=== PATIENT | male | born 1930 | race Caucasian/White ===

== ENCOUNTER 2019-01-17 10:15 | Inpatient (IN) | payer MEDICARE ==
[~2019-01-17] VITALS: Ht 195.6 cm; Wt 117.1 kg
[~2019-01-17 10:15] MED LIST: AMIO200T61 PO; FURO-150 PO; METO-395 PO; OMEP-297 PO; SIMV20TA PO; WARF6TAB49 PO
[2019-01-17 11:13] LABS: BASOPHILS % (AUTO) 0.8 % (0-1); EOSINOPHILS # (AUTO) 0.1 X10'3 (0-0.9); EOSINOPHILS % (AUTO) 1.2 % (0-6); HEMATOCRIT 43.5 % (42.0-52.0); HEMOGLOBIN 14.1 g/dl (14.0-17.9); LYMPHOCYTES # (AUTO) 1.4 X10'3 (1.1-4.8); LYMPHOCYTES % (AUTO) 22.4 % (21-51); MEAN CORPUSCULAR HEMOGLOBIN 24.7 PG (27.0-31.0); MEAN CORPUSCULAR HGB CONC 32.3 g/dL (33.0-36.5); MEAN CORPUSCULAR VOLUME 76.6 FL (78-98); MEAN PLATELET VOLUME 7.9 FL (7.4-10.4); MONOCYTES # (AUTO) 0.4 X10'3 (0-0.9); MONOCYTES % (AUTO) 5.9 % (2-12); NEUTROPHILS # (AUTO) 4.2 X10'3 (1.8-7.7); NEUTROPHILS % (AUTO) 69.7 % (42-75); PLATELET COUNT 205 X10'3 (140-440); RED BLOOD COUNT 5.68 X10'6 (4.70-6.10); RED CELL DISTRIBUTION WIDTH 15.3 % (11.5-14.5)
[2019-01-17 11:29] LABS: ALANINE AMINOTRANSFERASE 8 U/L (12-78); ALBUMIN 2.6 G/DL (3.4-5.0); ALBUMIN/GLOBULIN RATIO 0.6 (1.1-1.5); ALKALINE PHOSPHATASE 91 IU/L (46-116); ANION GAP 8 (8-16); BILIRUBIN,TOTAL 0.6 MG/DL (0.1-1.0); BLOOD UREA NITROGEN 12 MG/DL (7-18); BUN/CREATININE RATIO 9.7 (5.4-32.0); CALCIUM 8.8 MG/DL (8.5-10.1); CHLORIDE 105 MMOL/L (99-107); CREATININE 1.24 MG/DL (0.60-1.10); GLUCOSE 90 MG/DL (70-104); MAGNESIUM 2.2 MG/DL (1.5-2.4); SODIUM 140 MMOL/L (135-145); TOTAL CARBON DIOXIDE 26.7 MMOL/L (24-32); TOTAL PROTEIN 6.8 G/DL (6.4-8.2); eGFR 55 ML/MIN
[2019-01-17 11:34] LABS: ASPARTATE AMINO TRANSFERASE 31 U/L (10-37); POTASSIUM 4.1 MMOL/L (3.5-5.1)
--- NOTE | 2019-01-17 11:39 | NUR ---
wound pictures taken, dressing to abd changed
[2019-01-17] MEDS ORDERED: magnesium 4gm in 100ml NS 100 ML IV PRN (11:40)
[2019-01-17] MEDS ORDERED: magnesium hydroxide 30ml (MOM) UD suspension PO PRN (11:40)
[2019-01-17] MEDS ORDERED: morphine 2 MG/ML inj. syringe IV PRN (11:40)
[2019-01-17] MEDS ORDERED: potassium CL 10mEq/100ml bag 100 ML IV PRN ×2 (11:40)
[2019-01-17] MEDS ORDERED: mag hydrox/Alum hydrox/simeth 30ml oral suspension PO PRN (11:40)
[2019-01-17] MEDS ORDERED: magnesium Cl slow-release 64mg tablet PO PRN (11:40)
[2019-01-17] MEDS ORDERED: potassium Cl 20 mEq SR tablet PO PRN ×2 (11:40)
[2019-01-17] MEDS ORDERED: acetaminophen 325mg tablet PO PRN (11:40)
[2019-01-17] MEDS ORDERED: magnesium 2GM in 50ml NS 50 ML IV PRN (11:40)
[2019-01-17 12:55] VITALS: BP 135/62
[2019-01-17] MEDS: normal saline 1000ml 1,000 ML IV SCH ×2 (13:44→23:30)
--- NOTE | 2019-01-17 13:52 | NUR ---
Wound care nurse at bedside
--- NOTE | 2019-01-17 14:46 | NUR ---
Family brought patient's belonging home
--- NOTE | 2019-01-17 14:55 | NUR ---
polysomnograph tech at bedside
[2019-01-17] MEDS ORDERED: FLU VACC QS2019-20 36MOS UP/PF 60 MCG/0.5 ML SYRINGE IMVAC ONE (16:20)
--- NOTE | 2019-01-17 17:13 | NUR ---
Per patient, he already got a flu shot last month
--- NOTE | 2019-01-17 18:50 | NUR ---
Patient in room [facility]. I have received report from PAMELA DONAHUE and had the opportunity to ask questions and assume patient care. Addendum: 01/17/19 at 2010 by Coleman Hanna RN Amended: Links added.
--- NOTE | 2019-01-17 18:51 | NUR ---
Problems reprioritized. Patient report given, questions answered & plan of care reviewed with Renita SANTIAGO.
[2019-01-17 19:00] VITALS: BP 150/59
[2019-01-17] MEDS ORDERED: ASPI81TA52 PO (20:01)
[2019-01-17] MEDS ORDERED: CHOL200016 PO (20:04)
--- NOTE | 2019-01-17 20:08 | NUR ---
DISCUSSED HOME MEDICATIONS WITH FAMILY, ONEYDAOP AND ABLuigi. DAUGHTER STATES HE GETS HICCOUGHS AFTER SURGERY, AND HAS BECOME ANGRY AND SOMEWHAT VIOLENT AFTER SURGERY, HAS PULLED IV APART, NO HX OF HITTING. Addendum: 01/17/19 at 2009 by Coleman Hanna RN Amended: Links added.
[2019-01-17] MEDS ORDERED: FURO40TA4 PO (20:23)
[2019-01-17] MEDS ORDERED: AMIO100T4 PO (20:25)
[2019-01-17] MEDS: clindamycin 600mg/D5W 50ml 50 ML IV SCH (21:15)
[2019-01-18] VITALS: BP 142/59
--- NOTE | 2019-01-18 00:52 | NUR ---
UNABLE TO CLIP HAIR ON ABD D/T FISTULA WITH LARGE OSTOMY BAG IN PLACE, AMB VERY EXCORIATED WITH OPEN AREAS, NO HAIR NOTED ON ABD. Addendum: 01/18/19 at 0056 by Coleman Hanna RN Amended: Links added.
[2019-01-18 06:08] LABS: BASOPHILS % (AUTO) 0.6 % (0-1); EOSINOPHILS # (AUTO) 0.1 X10'3 (0-0.9); EOSINOPHILS % (AUTO) 1.9 % (0-6); HEMATOCRIT 39.5 % (42.0-52.0); HEMOGLOBIN 12.8 g/dl (14.0-17.9); LYMPHOCYTES # (AUTO) 2.1 X10'3 (1.1-4.8); LYMPHOCYTES % (AUTO) 41.9 % (21-51); MEAN CORPUSCULAR HEMOGLOBIN 24.8 PG (27.0-31.0); MEAN CORPUSCULAR HGB CONC 32.3 g/dL (33.0-36.5); MEAN CORPUSCULAR VOLUME 76.8 FL (78-98); MEAN PLATELET VOLUME 7.9 FL (7.4-10.4); MONOCYTES # (AUTO) 0.4 X10'3 (0-0.9); MONOCYTES % (AUTO) 7.7 % (2-12); NEUTROPHILS # (AUTO) 2.4 X10'3 (1.8-7.7); NEUTROPHILS % (AUTO) 47.9 % (42-75); PLATELET COUNT 201 X10'3 (140-440); RED BLOOD COUNT 5.14 X10'6 (4.70-6.10); RED CELL DISTRIBUTION WIDTH 15.3 % (11.5-14.5)
[2019-01-18 06:23] LABS: PARTIAL THROMBOPLASTIN TIME 30 SECONDS (22-32)
[2019-01-18 06:26] LABS: ALBUMIN 2.2 G/DL (3.4-5.0); ANION GAP 8 (8-16); BLOOD UREA NITROGEN 11 MG/DL (7-18); BUN/CREATININE RATIO 9.6 (5.4-32.0); CALCIUM 8.3 MG/DL (8.5-10.1); CHLORIDE 109 MMOL/L (99-107); CREATININE 1.14 MG/DL (0.60-1.10); GLUCOSE 76 MG/DL (70-104); MAGNESIUM 2.1 MG/DL (1.5-2.4); SODIUM 140 MMOL/L (135-145); TOTAL CARBON DIOXIDE 22.6 MMOL/L (24-32); eGFR 60 ML/MIN
--- NOTE | 2019-01-18 06:26 | NUR ---
Problems reprioritized. Patient report given, questions answered & plan of care reviewed with PAMELA HU. Addendum: 01/18/19 at 0626 by Coleman Hanna RN Amended: Links added.
--- NOTE | 2019-01-18 06:38 | NUR ---
Patient in room [facility] 355. I have received report from PAMELA Downs and had the opportunity to ask questions and assume patient care.
[2019-01-18] MEDS: K and/or MAG REPLACEMENT MC SCH (07:04)
[2019-01-18] MEDS: clindamycin 600mg/D5W 50ml 50 ML IV SCH ×3 (07:50→21:30)
[2019-01-18 08:00] VITALS: BP 143/60
[2019-01-18] MEDS: normal saline 1000ml 1,000 ML IV SCH ×3 (09:30→19:24)
[2019-01-18] MEDS ORDERED: OMEP-297 PO (10:33)
[2019-01-18] MEDS ORDERED: CHOL100046 PO (10:33)
[2019-01-18] MEDS ORDERED: METO25TA6 PO (10:33)
[2019-01-18] MEDS ORDERED: PRAV40TA3 PO (10:33)
--- NOTE | 2019-01-18 16:57 | NUR ---
Pt complains of urgency and difficulty with urination. Total urine output of 275 mL over 11 hours with IVF of NS infusing at 100 mL per hour and additional PO intake. Post-void bladder scan indicated residual volume of 141 mL. notified. Will continue to monitor.
--- NOTE | 2019-01-18 18:12 | NUR ---
Student documentation: I have reviewed and agree with all interventions, assessments performed and documented by Dawn Acevedo.
--- NOTE | 2019-01-18 18:42 | NUR ---
Problems reprioritized. Patient report given, questions answered & plan of care reviewed with PAMELA Hewitt.
--- NOTE | 2019-01-18 18:57 | NUR ---
Patient in room [facility] 355. I have received report from PAMELA Miner and had the opportunity to ask questions and assume patient care.
[2019-01-18 20:00] VITALS: BP 138/60
[2019-01-18] MEDS ORDERED: metoprolol tartrate 25mg tablet PO SCH (20:00)
[2019-01-18] MEDS: atorvastatin 10mg tablet PO SCH (21:29)
--- NOTE | 2019-01-18 23:30 | NUR ---
Tele reports HR mid 40's. notified. Per previous RN, patient no longer takes lopressor. MD ordered lopressor DC'd. Will continue to monitor.
[2019-01-19] VITALS (13 sets, daily range): BP systolic 119–163; BP diastolic 49–72
[2019-01-19] MEDS: HYDROcodone/acetaminophen 5mg/325mg tablet PO PRN (00:49)
[2019-01-19] MEDS: normal saline 1000ml 1,000 ML IV SCH ×2 (05:08→19:28)
[2019-01-19 05:21] LABS: BASOPHILS # (AUTO) 0.1 X10'3 (0-0.2); BASOPHILS % (AUTO) 1.3 % (0-1); EOSINOPHILS # (AUTO) 0.2 X10'3 (0-0.9); EOSINOPHILS % (AUTO) 2.5 % (0-6); HEMATOCRIT 39.7 % (42.0-52.0); HEMOGLOBIN 12.8 g/dl (14.0-17.9); LYMPHOCYTES # (AUTO) 2.4 X10'3 (1.1-4.8); LYMPHOCYTES % (AUTO) 36.6 % (21-51); MEAN CORPUSCULAR HGB CONC 32.3 g/dL (33.0-36.5); MEAN CORPUSCULAR VOLUME 77.6 FL (78-98); MEAN PLATELET VOLUME 8.1 FL (7.4-10.4); MONOCYTES # (AUTO) 0.4 X10'3 (0-0.9); MONOCYTES % (AUTO) 6.7 % (2-12); NEUTROPHILS # (AUTO) 3.4 X10'3 (1.8-7.7); NEUTROPHILS % (AUTO) 52.9 % (42-75); PLATELET COUNT 179 X10'3 (140-440); RED BLOOD COUNT 5.11 X10'6 (4.70-6.10); RED CELL DISTRIBUTION WIDTH 15.4 % (11.5-14.5); WHITE BLOOD COUNT 6.5 X10'3 (4.5-11.0)
[2019-01-19 05:39] LABS: PARTIAL THROMBOPLASTIN TIME 24 SECONDS (22-32)
[2019-01-19 05:58] LABS: ALBUMIN 2.2 G/DL (3.4-5.0); ANION GAP 8 (8-16); BLOOD UREA NITROGEN 7 MG/DL (7-18); CALCIUM 8.1 MG/DL (8.5-10.1); CHLORIDE 109 MMOL/L (99-107); CREATININE 1.17 MG/DL (0.60-1.10); GLUCOSE 82 MG/DL (70-104); SODIUM 139 MMOL/L (135-145); TOTAL CARBON DIOXIDE 22.2 MMOL/L (24-32); eGFR 59 ML/MIN
--- NOTE | 2019-01-19 06:34 | NUR ---
Problems reprioritized. Patient report given, questions answered & plan of care reviewed with PAMELA Miner.
--- NOTE | 2019-01-19 06:36 | NUR ---
Patient in room [facility] 355. I have received report from PAMELA Hewitt and had the opportunity to ask questions and assume patient care.
--- NOTE | 2019-01-19 07:03 | NUR ---
Patient in room [facility] 355. I have received report from PMAELA Hewitt and had the opportunity to ask questions and assume patient care.
[2019-01-19] MEDS: vitamin D (cholecalciferol) 1,000 unit tablet PO SCH (07:39)
[2019-01-19] MEDS: K and/or MAG REPLACEMENT MC SCH (07:40)
[2019-01-19] MEDS: aspirin 81mg tablet.DR PO SCH (07:40)
[2019-01-19] MEDS: pantoprazole 40mg Tablet.DR PO SCH (07:57)
[2019-01-19] MEDS: clindamycin 600mg/D5W 50ml 50 ML IV SCH ×3 (07:58→21:08)
[2019-01-19] MEDS ORDERED: ringers solution, lacted 1,000 ML IV SCH (08:47)
[2019-01-19] MEDS ORDERED: proCHLORperazine 10 MG/2 ml inj IV PRN (08:50)
[2019-01-19] MEDS ORDERED: ondansetron/PF 4mg/2ml inj IV PRN (08:50)
[2019-01-19] MEDS ORDERED: meperidine/PF 25mg/ml syringe IV PRN ×2 (08:50)
[2019-01-19] MEDS ORDERED: morphine 4 MG/ML inj SYRINge IV PRN ×2 (08:50)
[2019-01-19] MEDS ORDERED: glycopyrrolate 0.2mg/ml inj ONE (13:50)
[2019-01-19] MEDS ORDERED: neostigmine methylsulfate 1 MG/ML 10ml vial ONE (13:50)
[2019-01-19] MEDS ORDERED: rocuronium 10mg/ml inj IV ONE ×2 (13:50→13:58)
[2019-01-19] MEDS ORDERED: desflurane 240ml liquid inh. IH ONE (13:50)
[2019-01-19] MEDS ORDERED: LIDOcaine 1% (10mg/ml) 2ml vial ONE (13:52)
[2019-01-19] MEDS ORDERED: midazolam 2 mg/2 ml injection ONE (13:54)
[2019-01-19] MEDS ORDERED: fentaNYL /PF 50mcg/ml 5ml ampule ONE (13:55)
[2019-01-19] MEDS ORDERED: etomidate 2mg/ml inj. ONE (13:58)
[2019-01-19] MEDS ORDERED: LIDOcaine 1%/PF 5ML 10 MG/ML VIAL ONE (14:24)
--- NOTE | 2019-01-19 15:15 | NUR ---
Received report from PAMELA Miner. Patient in OR.
--- NOTE | 2019-01-19 15:16 | NUR ---
Problems reprioritized. Patient report given, questions answered & plan of care reviewed with PAMELA Suárez.
[2019-01-19] MEDS ORDERED: acetaminophen 1,000mg/100ml IV 100 ML IV ONE (16:07)
[2019-01-19] MEDS ORDERED: bacitracin 15gm ointment TP ONE (16:08)
[2019-01-19] MEDS ORDERED: sugammadex 200mg/2ml injection IV ONE (16:25)
--- NOTE | 2019-01-19 16:38 | NUR ---
Received from OR via BED, accompanied by Anesthesiologist DR PATEL and report given by Anesthesiologist. PT DROWSY, NO S/S OF DISTRESS/DISCOMFORT, ABDOMEN W/LARGE ABD PADS W/S/S DRAINAGE, HARDEN CATHETER W/PINK URINE TO GRAVITY DRAINAGE. Addendum: 01/19/19 at 1657 by Lizett Martinez RN Amended: Links added.
--- NOTE | 2019-01-19 17:03 | NUR ---
Received report from PAMELA Phoenix in recovery room. awaiting patient arrival.
[2019-01-19] MEDS: meperidine/PF 25mg/ml syringe IV PRN ×2 (17:08→17:24)
--- NOTE | 2019-01-19 17:48 | NUR ---
Report called to receiving nurse. Transferred via BED, ON TELE #1, NO Belongings, RECEIVING RN AT BEDSIDE TO RECEIVE PT, BLL, CALL LIGHT GIVEN, SIDE RAILS UP X 2, PT RESTING W/EYES CLOSED, FAMILY NOTIFIED OF PT TRANSFER. Special Issues communicated to receiving nurse. YES. Addendum: 01/19/19 at 1802 by Lizett Martinez RN Amended: Links added.
--- NOTE | 2019-01-19 18:06 | NUR ---
Student documentation: I have reviewed all interventions, assessments performed and documented by Zeinab john
--- NOTE | 2019-01-19 18:27 | NUR ---
Problems reprioritized. Patient report given, questions answered & plan of care reviewed with Elisabeth Spann RN.
--- NOTE | 2019-01-19 18:34 | NUR ---
Patient in room [facility] 358. I have received report from PAMELA Hollingsworth and had the opportunity to ask questions and assume patient care. Addendum: 01/19/19 at 1834 by Aditi Kelly RN Amended: Links added.
[2019-01-19] MEDS: ondansetron/PF 4mg/2ml inj IV PRN (19:26)
[2019-01-19] MEDS: lactobacillus rhamnosus 10,000 MMU CELLS/CAPSULE PO SCH (21:08)
[2019-01-19] MEDS: atorvastatin 10mg tablet PO SCH (21:08)
[2019-01-20] VITALS: BP 127/53
[2019-01-20 05:00] VITALS: BP 106/49
[2019-01-20] MEDS: normal saline 1000ml 1,000 ML IV SCH ×2 (05:25→15:08)
[2019-01-20 05:42] LABS: ANION GAP 10 (8-16); BLOOD UREA NITROGEN 9 MG/DL (7-18); BUN/CREATININE RATIO 6.3 (5.4-32.0); CALCIUM 7.7 MG/DL (8.5-10.1); CHLORIDE 109 MMOL/L (99-107); CREATININE 1.43 MG/DL (0.60-1.10); GLUCOSE 96 MG/DL (70-104); MAGNESIUM 1.5 MG/DL (1.5-2.4); POTASSIUM 4.4 MMOL/L (3.5-5.1); SODIUM 139 MMOL/L (135-145); TOTAL CARBON DIOXIDE 20.1 MMOL/L (24-32); eGFR 47 ML/MIN
[2019-01-20 05:46] LABS: BASOPHILS # (AUTO) 0.1 X10'3 (0-0.2); BASOPHILS % (AUTO) 0.4 % (0-1); EOSINOPHILS % (AUTO) 0.1 % (0-6); HEMATOCRIT 40.1 % (42.0-52.0); HEMOGLOBIN 13.1 g/dl (14.0-17.9); LYMPHOCYTES # (AUTO) 1.1 X10'3 (1.1-4.8); LYMPHOCYTES % (AUTO) 7.5 % (21-51); MEAN CORPUSCULAR HEMOGLOBIN 24.7 PG (27.0-31.0); MEAN CORPUSCULAR HGB CONC 32.6 g/dL (33.0-36.5); MEAN CORPUSCULAR VOLUME 75.8 FL (78-98); MEAN PLATELET VOLUME 8.3 FL (7.4-10.4); MONOCYTES # (AUTO) 0.2 X10'3 (0-0.9); MONOCYTES % (AUTO) 1.3 % (2-12); NEUTROPHILS # (AUTO) 13.1 X10'3 (1.8-7.7); NEUTROPHILS % (AUTO) 90.7 % (42-75); PLATELET COUNT 204 X10'3 (140-440); RED BLOOD COUNT 5.29 X10'6 (4.70-6.10); RED CELL DISTRIBUTION WIDTH 15.6 % (11.5-14.5); WHITE BLOOD COUNT 14.5 X10'3 (4.5-11.0)
--- NOTE | 2019-01-20 06:34 | NUR ---
Problems reprioritized. Patient report given, questions answered & plan of care reviewed with PAMELA Bae's. Addendum: 01/20/19 at 0634 by Aditi Kelly RN Amended: Links added.
[2019-01-20 07:04] VITALS: BP 92/48
[2019-01-20 07:30] VITALS: BP 104/49
[2019-01-20] MEDS: morphine 2 MG/ML inj. syringe IV PRN ×2 (07:30→13:37)
[2019-01-20] MEDS: pantoprazole 40mg Tablet.DR PO SCH (07:42)
[2019-01-20] MEDS: vitamin D (cholecalciferol) 1,000 unit tablet PO SCH (07:42)
[2019-01-20] MEDS: lactobacillus rhamnosus 10,000 MMU CELLS/CAPSULE PO SCH ×2 (07:43→20:38)
[2019-01-20] MEDS: aspirin 81mg tablet.DR PO SCH (07:43)
[2019-01-20] MEDS: clindamycin 600mg/D5W 50ml 50 ML IV SCH ×3 (07:43→20:37)
[2019-01-20] MEDS: K and/or MAG REPLACEMENT MC SCH (08:00)
[2019-01-20] MEDS: ondansetron/PF 4mg/2ml inj IV PRN ×2 (08:19→19:36)
[2019-01-20 11:00] VITALS: BP 103/43
--- NOTE | 2019-01-20 13:00 | NUR ---
Changed patients dressing per MD orders Antibacterial ointment applied, barrier spray used on excoriated area 4x4, abd dressing and medipore tape applied. Patient tolerated well.
[2019-01-20 18:00] VITALS: BP 113/62
--- NOTE | 2019-01-20 18:28 | NUR ---
Patient in room [facility] 358. I have received report from PAMELA Bae's and had the opportunity to ask questions and assume patient care. Addendum: 01/20/19 at 1828 by Aditi Kelly RN Amended: Links added.
[2019-01-20] MEDS ORDERED: magnesium 2GM in 50ml NS 50 ML IV ONE (19:40)
--- NOTE | 2019-01-20 19:45 | NUR ---
Notified Dr. Lovell about patients heart rythym changed to junctional tachycardia , patient asymptomatic and ordered EKG/ 2gm mag IV.
[2019-01-20] MEDS: atorvastatin 10mg tablet PO SCH (20:39)
[2019-01-21 00:51] VITALS: BP 120/55
[2019-01-21] MEDS: normal saline 1000ml 1,000 ML IV SCH ×3 (03:00→23:49)
[2019-01-21] MEDS: ondansetron/PF 4mg/2ml inj IV PRN ×2 (04:09→10:19)
--- NOTE | 2019-01-21 05:26 | NUR ---
received results on ekg with no new order from MD, patient had episode of vomiting with greenish bile emesis.
[2019-01-21 06:06] LABS: ALBUMIN 1.7 G/DL (3.4-5.0); ANION GAP 9 (8-16); BLOOD UREA NITROGEN 19 MG/DL (7-18); BUN/CREATININE RATIO 12.6 (5.4-32.0); CALCIUM 8.1 MG/DL (8.5-10.1); CHLORIDE 110 MMOL/L (99-107); CREATININE 1.51 MG/DL (0.60-1.10); GLUCOSE 90 MG/DL (70-104); MAGNESIUM 2.1 MG/DL (1.5-2.4); POTASSIUM 4.5 MMOL/L (3.5-5.1); SODIUM 139 MMOL/L (135-145); TOTAL CARBON DIOXIDE 20.3 MMOL/L (24-32); eGFR 44 ML/MIN
[2019-01-21 06:18] LABS: BASOPHILS % (AUTO) 0.1 % (0-1); EOSINOPHILS % (AUTO) 0.1 % (0-6); HEMATOCRIT 37.5 % (42.0-52.0); LYMPHOCYTES # (AUTO) 1.1 X10'3 (1.1-4.8); LYMPHOCYTES % (AUTO) 7.8 % (21-51); MEAN CORPUSCULAR HEMOGLOBIN 24.5 PG (27.0-31.0); MEAN CORPUSCULAR VOLUME 76.6 FL (78-98); MEAN PLATELET VOLUME 8.4 FL (7.4-10.4); MONOCYTES # (AUTO) 0.6 X10'3 (0-0.9); MONOCYTES % (AUTO) 4.3 % (2-12); NEUTROPHILS % (AUTO) 87.7 % (42-75); PLATELET COUNT 191 X10'3 (140-440); RED BLOOD COUNT 4.89 X10'6 (4.70-6.10); RED CELL DISTRIBUTION WIDTH 15.6 % (11.5-14.5); WHITE BLOOD COUNT 13.6 X10'3 (4.5-11.0)
--- NOTE | 2019-01-21 06:31 | NUR ---
Problems reprioritized. Patient report given, questions answered & plan of care reviewed with PAMELA Ogden.
[2019-01-21] MEDS: K and/or MAG REPLACEMENT MC SCH (06:43)
--- NOTE | 2019-01-21 06:47 | NUR ---
Patient in room [facility] 358. I have received report from Elisabeth SANTIAGO and had the opportunity to ask questions and assume patient care.
[2019-01-21 08:16] VITALS: BP 132/59
[2019-01-21] MEDS: clindamycin 600mg/D5W 50ml 50 ML IV SCH ×3 (08:26→20:17)
[2019-01-21] MEDS: vitamin D (cholecalciferol) 1,000 unit tablet PO SCH (08:26)
[2019-01-21] MEDS: lactobacillus rhamnosus 10,000 MMU CELLS/CAPSULE PO SCH ×2 (08:26→20:17)
[2019-01-21] MEDS: pantoprazole 40mg Tablet.DR PO SCH (08:26)
[2019-01-21] MEDS: aspirin 81mg tablet.DR PO SCH (08:26)
[2019-01-21] MEDS: enoxaparin 40mg/0.4ml syringe SUBCUT SCH (08:27)
[2019-01-21 11:00] VITALS: BP 152/83
[2019-01-21] MEDS: metoclopramide 5 mg/ml inj IV PRN (12:14)
--- NOTE | 2019-01-21 12:45 | NUR ---
pT WITH EMESIS 3 TIMES TODAY. zOFRAN GIVEN TWICE AND REGLAN X 1. ORDER FROM DR. VUONG TO PLACE NG TUBE. [address] CHICAS REPOSITIONED NG TUBE.
--- NOTE | 2019-01-21 16:26 | NUR ---
Report received from Alin SANTIAGO
--- NOTE | 2019-01-21 16:32 | NUR ---
Problems reprioritized. Patient report given, questions answered & plan of care reviewed with JUICE MENESES RN.
[2019-01-21 18:00] VITALS: BP 132/68
--- NOTE | 2019-01-21 18:51 | NUR ---
Problems reprioritized. Patient report given, questions answered & plan of care reviewed with Elisabeth Mosqueda RN.
--- NOTE | 2019-01-21 19:12 | NUR ---
Patient in room [facility] 358. I have received report from PAMELA DONAHUE and had the opportunity to ask questions and assume patient care. Addendum: 01/21/19 at 1912 by Aditi Kelly RN Amended: Links added.
[2019-01-21] MEDS: atorvastatin 10mg tablet PO SCH (20:17)
[2019-01-22 00:33] VITALS: BP 140/60
--- NOTE | 2019-01-22 05:57 | NUR ---
mid abdominal dressing changed at this shift, noted with yellowish pinkish drainage on the dressing.
--- NOTE | 2019-01-22 06:27 | NUR ---
Problems reprioritized. Patient report given, questions answered & plan of care reviewed with PAMELA Oconnell.
[2019-01-22 06:29] LABS: BASOPHILS % (AUTO) 0.3 % (0-1); EOSINOPHILS % (AUTO) 0.1 % (0-6); HEMATOCRIT 33.8 % (42.0-52.0); HEMOGLOBIN 11.1 g/dl (14.0-17.9); LYMPHOCYTES # (AUTO) 1.5 X10'3 (1.1-4.8); LYMPHOCYTES % (AUTO) 11.2 % (21-51); MEAN CORPUSCULAR HEMOGLOBIN 24.8 PG (27.0-31.0); MEAN CORPUSCULAR HGB CONC 32.9 g/dL (33.0-36.5); MEAN CORPUSCULAR VOLUME 75.6 FL (78-98); MEAN PLATELET VOLUME 8.5 FL (7.4-10.4); MONOCYTES # (AUTO) 0.4 X10'3 (0-0.9); MONOCYTES % (AUTO) 2.6 % (2-12); NEUTROPHILS # (AUTO) 11.6 X10'3 (1.8-7.7); NEUTROPHILS % (AUTO) 85.8 % (42-75); PLATELET COUNT 187 X10'3 (140-440); RED BLOOD COUNT 4.48 X10'6 (4.70-6.10); RED CELL DISTRIBUTION WIDTH 15.8 % (11.5-14.5); WHITE BLOOD COUNT 13.5 X10'3 (4.5-11.0)
[2019-01-22 06:30] VITALS: BP 132/54
[2019-01-22 06:33] LABS: ALBUMIN 1.6 G/DL (3.4-5.0); ANION GAP 8 (8-16); BLOOD UREA NITROGEN 19 MG/DL (7-18); BUN/CREATININE RATIO 16.5 (5.4-32.0); CALCIUM 8.2 MG/DL (8.5-10.1); CHLORIDE 111 MMOL/L (99-107); CREATININE 1.15 MG/DL (0.60-1.10); GLUCOSE 79 MG/DL (70-104); POTASSIUM 4.2 MMOL/L (3.5-5.1); SODIUM 141 MMOL/L (135-145); TOTAL CARBON DIOXIDE 22.2 MMOL/L (24-32); eGFR 60 ML/MIN
--- NOTE | 2019-01-22 06:33 | NUR ---
Patient in room [facility] 358. I have received report from Elisabeth Mosqueda RN and had the opportunity to ask questions and assume patient care.
[2019-01-22] MEDS: enoxaparin 40mg/0.4ml syringe SUBCUT SCH (07:30)
[2019-01-22] MEDS: clindamycin 600mg/D5W 50ml 50 ML IV SCH ×3 (07:30→21:14)
[2019-01-22] MEDS: aspirin 81mg tablet.DR PO SCH (08:00)
[2019-01-22] MEDS: K and/or MAG REPLACEMENT MC SCH (08:00)
[2019-01-22] MEDS: lactobacillus rhamnosus 10,000 MMU CELLS/CAPSULE PO SCH ×2 (08:00→20:00)
[2019-01-22] MEDS: vitamin D (cholecalciferol) 1,000 unit tablet PO SCH (08:00)
[2019-01-22] MEDS: pantoprazole 40mg Tablet.DR PO SCH (09:46)
[2019-01-22 11:00] VITALS: BP 120/73
[2019-01-22] MEDS: normal saline 1000ml 1,000 ML IV SCH (11:11)
--- NOTE | 2019-01-22 13:29 | NUR ---
Redness on the patient's sacrum area noted, non-blanchable. Wound picture taken with patient's permission. Calazyme cream applied on the reddened area and Optifoam applied.
--- NOTE | 2019-01-22 13:59 | NUR ---
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 Currently NPO on ice chips w/ NG in place for persistent N/V and emesis post-op. -1300ml NG suction past 24 hours and no gas/BM yet post-op receiving reglan. LBM 01/18. Post-op ileus per MD note. Pt 0% PO prior to OR as well essentially 5 days no nutrition at this time. If ileus persists wound benefit from IV nutrition to meet healing needs; recs below. Will continue to monitor. Rec: 1. IF to remain NPO at least 7 days w/ ileus; TPN pending MD approval using Clinimix E 5/15 at 115ml/hr goal; separate lipid infusions to run 10ml/hr for 12 hours daily. To provide 2880ml fluid, 144g AA, 432g DEX(2.6mg/kg/min), and 1709 total non-protein kcals. 2. opioid antagonist and promotility post-op per MD approval 3. advance diet per MD to regular 4. once PO; MVI for healing needs 5. weekly wts Addendum: 01/22/19 at [address] Amended: Links added.
[2019-01-22] MEDS: potassium CL 20mEq in D5-1/2NS 1,000 ML IV SCH (14:53)
[2019-01-22 18:00] VITALS: BP 126/71
--- NOTE | 2019-01-22 18:28 | NUR ---
Problems reprioritized. Patient report given, questions answered & plan of care reviewed with Sharona SANTIAGO.
--- NOTE | 2019-01-22 18:39 | NUR ---
Assumed care of patient with verbal report from Gisela RN's.
[2019-01-22] MEDS ORDERED: metoclopramide 5 mg/ml inj IV ONE (19:25)
[2019-01-22] MEDS: morphine 4 MG/ML inj SYRINge IV PRN (19:45)
[2019-01-22] MEDS: atorvastatin 10mg tablet PO SCH (20:02)
[2019-01-22 22:00] VITALS: BP 117/56
[2019-01-23] MEDS: potassium CL 20mEq in D5-1/2NS 1,000 ML IV SCH ×4 (02:09→23:34)
--- NOTE | 2019-01-23 06:23 | NUR ---
Patient in room [facility] 358. I have received report from PAMELA CLIFFORD and had the opportunity to ask questions and assume patient care.
--- NOTE | 2019-01-23 06:26 | NUR ---
Problems reprioritized. Patient report given, questions answered & plan of care reviewed with Ezequiel SANTIAGO.
[2019-01-23 07:00] VITALS: BP 117/59
[2019-01-23] MEDS: enoxaparin 40mg/0.4ml syringe SUBCUT SCH (07:46)
[2019-01-23] MEDS: clindamycin 600mg/D5W 50ml 50 ML IV SCH (07:46)
[2019-01-23] MEDS: lactobacillus rhamnosus 10,000 MMU CELLS/CAPSULE PO SCH ×2 (08:00→20:00)
[2019-01-23] MEDS: K and/or MAG REPLACEMENT MC SCH (08:00)
[2019-01-23] MEDS: vitamin D (cholecalciferol) 1,000 unit tablet PO SCH (08:00)
[2019-01-23] MEDS: aspirin 81mg tablet.DR PO SCH (08:00)
[2019-01-23 08:06] LABS: BASOPHILS % (AUTO) 0.3 % (0-1); EOSINOPHILS # (AUTO) 0.1 X10'3 (0-0.9); EOSINOPHILS % (AUTO) 0.8 % (0-6); HEMATOCRIT 34.6 % (42.0-52.0); HEMOGLOBIN 11.1 g/dl (14.0-17.9); LYMPHOCYTES # (AUTO) 1.3 X10'3 (1.1-4.8); LYMPHOCYTES % (AUTO) 9.8 % (21-51); MEAN CORPUSCULAR HEMOGLOBIN 24.6 PG (27.0-31.0); MEAN CORPUSCULAR HGB CONC 32.1 g/dL (33.0-36.5); MEAN CORPUSCULAR VOLUME 76.6 FL (78-98); MEAN PLATELET VOLUME 8.9 FL (7.4-10.4); MONOCYTES # (AUTO) 0.5 X10'3 (0-0.9); MONOCYTES % (AUTO) 3.7 % (2-12); NEUTROPHILS # (AUTO) 10.8 X10'3 (1.8-7.7); NEUTROPHILS % (AUTO) 85.4 % (42-75); PLATELET COUNT 207 X10'3 (140-440); RED BLOOD COUNT 4.52 X10'6 (4.70-6.10); RED CELL DISTRIBUTION WIDTH 15.8 % (11.5-14.5); WHITE BLOOD COUNT 12.7 X10'3 (4.5-11.0)
[2019-01-23] MEDS: pantoprazole 40mg Tablet.DR PO SCH (09:40)
--- NOTE | 2019-01-23 09:46 | NUR ---
Dr. Mehta notified of patient's MDRO positive in abd wound culture.
[2019-01-23] MEDS: morphine 4 MG/ML inj SYRINge IV PRN (10:22)
[2019-01-23] MEDS: ondansetron/PF 4mg/2ml inj IV PRN (10:22)
[2019-01-23] MEDS: cefepime 1GM in D5W 50mL 50 ML IV SCH ×3 (10:44→23:34)
[2019-01-23 11:03] VITALS: BP 121/62
[2019-01-23] MEDS: fluconazole-Diflucan 200mg/NS 100 ML IV SCH (11:42)
--- NOTE | 2019-01-23 14:48 | NUR ---
RECOMMEND: 1. Daily bathing with no rinse skin cleanser. 2. Cream/Lotion to be applied to skin after bathing. 3. Alivia care Q shift and prn soiling followed by with Barrier Cream. 4. Turn patient Q 1-2 hrs and reposition with pillows. 5. Float heels to offload pressure. 6. Hydrophylic foam to sacrum. TO be changed by nursing Q5D.
--- NOTE | 2019-01-23 18:24 | NUR ---
Problems reprioritized. Patient report given, questions answered & plan of care reviewed with nikolas nichole.
[2019-01-23 18:40] VITALS: BP 130/59
[2019-01-23 19:51] VITALS: BP 130/59
[2019-01-23] MEDS: atorvastatin 10mg tablet PO SCH (20:31)
[2019-01-24] VITALS: BP 135/78
[2019-01-24 05:57] LABS: MAGNESIUM 1.9 MG/DL (1.5-2.4)
--- NOTE | 2019-01-24 06:52 | NUR ---
Patient in room [facility] 358. I have received report from Victoriano SANTIAGO and had the opportunity to ask questions and assume patient care.
[2019-01-24 07:00] VITALS: BP 121/49
[2019-01-24] MEDS: cefepime 1GM in D5W 50mL 50 ML IV SCH ×2 (07:56→16:20)
[2019-01-24] MEDS: aspirin 81mg tablet.DR PO SCH (07:58)
[2019-01-24] MEDS: pantoprazole 40mg Tablet.DR PO SCH (07:58)
[2019-01-24] MEDS: vitamin D (cholecalciferol) 1,000 unit tablet PO SCH (07:58)
[2019-01-24] MEDS: lactobacillus rhamnosus 10,000 MMU CELLS/CAPSULE PO SCH ×2 (07:58→20:15)
[2019-01-24] MEDS: enoxaparin 40mg/0.4ml syringe SUBCUT SCH (07:59)
[2019-01-24] MEDS: K and/or MAG REPLACEMENT MC SCH (08:00)
[2019-01-24] MEDS: HYDROcodone/acetaminophen 5mg/325mg tablet PO PRN (08:07)
[2019-01-24] MEDS: fluconazole-Diflucan 200mg/NS 100 ML IV SCH (08:51)
[2019-01-24 11:00] VITALS: BP 123/73
--- NOTE | 2019-01-24 11:13 | NUR ---
TPN consult: Pt still with no BM since 01/20 and not passing flatus per MD note. NG tube in place. Pt receiving PRN Zofran and Reglan for recurrent N/V last given 01/21. TPN appropriate as pt now day 6 with no nutrition and with prolonged return of bowel function. Pending PICC placement. TPN recs below have been d/w pharmacy. Will continue to follow closely. Rec: 1. Continuous TPN using 07/13 Clinimix E with 115 mL/hr goal rate to provide 138 g AA and 414 g Dextrose with dext load 2.5 mg/kg/min 2. Separate 120 mL 20% intralipids to run at 10 mL/hr for 12 hours daily to provide 24 g lipids 3. In total, TPN with lipids to provide 2880 mL total volume/day, 1648 non-protein kcals, and 2200 total kcal 4. Prealbumin and TG q / 5. Daily weights 6. Opioid antagonist and promotility post-op per MD approval 7. Advance diet to regular as medically indicated 8. Once PO; MVI for healing needs Addendum: 01/24/19 at [address] Amended: Links added.
[2019-01-24] MEDS ORDERED: magnesium 2GM in 50ml NS 50 ML IV PRN (13:10)
[2019-01-24] MEDS ORDERED: Dextrose 10%-water IV solution 1,000 ML IV PRN (13:10)
[2019-01-24] MEDS ORDERED: magnesium 4gm in 100ml NS 100 ML IV PRN (13:10)
[2019-01-24] MEDS ORDERED: potassium Cl 20 mEq SR tablet PO PRN ×2 (13:10)
[2019-01-24] MEDS ORDERED: magnesium Cl slow-release 64mg tablet PO PRN (13:10)
[2019-01-24] MEDS ORDERED: potassium CL 10mEq/100ml bag 100 ML IV PRN ×2 (13:10)
[2019-01-24 13:44] LABS: ALANINE AMINOTRANSFERASE 9 U/L (12-78); ALBUMIN 1.5 G/DL (3.4-5.0); ALBUMIN/GLOBULIN RATIO 0.4 (1.1-1.5); ANION GAP 6 (8-16); ASPARTATE AMINO TRANSFERASE 24 U/L (10-37); BILIRUBIN,TOTAL 0.5 MG/DL (0.1-1.0); BLOOD UREA NITROGEN 15 MG/DL (7-18); BUN/CREATININE RATIO 15.2 (5.4-32.0); CALCIUM 7.9 MG/DL (8.5-10.1); CHLORIDE 110 MMOL/L (99-107); CREATININE 0.99 MG/DL (0.60-1.10); GLUCOSE 101 MG/DL (70-104); PHOSPHORUS 1.4 MG/DL (2.3-4.5); SODIUM 141 MMOL/L (135-145); TOTAL CARBON DIOXIDE 24.8 MMOL/L (24-32); TOTAL PROTEIN 4.9 G/DL (6.4-8.2); TRIGLYCERIDES 67 MG/DL (20-135); eGFR 71 ML/MIN
[2019-01-24 14:17] LABS: ALKALINE PHOSPHATASE 74 IU/L (46-116)
--- NOTE | 2019-01-24 15:19 | NUR ---
RADIOLOGIST CALLED. THIS PT'S NG TUBE IS TOO HIGH. HE STATES 9CM. WILL NOTIFY NURSE OF RECORD
[2019-01-24] MEDS: potassium CL 20mEq in D5-1/2NS 1,000 ML IV SCH (16:20)
[2019-01-24] MEDS: Trace element-5 inj. 1 ML in AA 5%/cal/electrolyte-TPN/D15W 2,000 ML IV SCH (16:29)
[2019-01-24 18:00] VITALS: BP 106/57
--- NOTE | 2019-01-24 18:33 | NUR ---
NG advanced draining well 550mls greenish drainage. surgical incision changed mod amount of drainage, Charge nurse Vonnie observed surgical incision. will monitor and review in am. TPN initiated 1700hrs. PICC line placed prior 1600hrs. Patient appears comfortable at time of report. Report given to Harvinder SANTIAGO
--- NOTE | 2019-01-24 18:50 | NUR ---
Patient in room [facility] 358. I have received report from PAMELA Mcgarry and had the opportunity to ask questions and assume patient care.
[2019-01-24] MEDS: atorvastatin 10mg tablet PO SCH (20:17)
[2019-01-24] MEDS: fat emulsion IV bag 120 ML IV SCH (20:24)
[2019-01-24] MEDS: morphine 2 MG/ML inj. syringe IV PRN (21:21)
[2019-01-25] VITALS: BP 111/73
[2019-01-25] MEDS: metoclopramide 5 mg/ml inj IV PRN ×2 (00:38→13:34)
[2019-01-25] MEDS: cefepime 1GM in D5W 50mL 50 ML IV SCH ×3 (00:38→16:24)
[2019-01-25] MEDS: potassium CL 20mEq in D5-1/2NS 1,000 ML IV SCH ×2 (02:35→05:18)
[2019-01-25 04:44] LABS: ALANINE AMINOTRANSFERASE 7 U/L (12-78); ALBUMIN 1.3 G/DL (3.4-5.0); ALBUMIN/GLOBULIN RATIO 0.4 (1.1-1.5); ALKALINE PHOSPHATASE 75 IU/L (46-116); ANION GAP 5 (8-16); ASPARTATE AMINO TRANSFERASE 21 U/L (10-37); BILIRUBIN,TOTAL 0.5 MG/DL (0.1-1.0); BLOOD UREA NITROGEN 11 MG/DL (7-18); BUN/CREATININE RATIO 12.2 (5.4-32.0); CALCIUM 7.9 MG/DL (8.5-10.1); CHLORIDE 109 MMOL/L (99-107); GLUCOSE 104 MG/DL (70-104); MAGNESIUM 1.9 MG/DL (1.5-2.4); PHOSPHORUS 1.4 MG/DL (2.3-4.5); POTASSIUM 3.7 MMOL/L (3.5-5.1); SODIUM 141 MMOL/L (135-145); TOTAL CARBON DIOXIDE 27.1 MMOL/L (24-32); TOTAL PROTEIN 4.6 G/DL (6.4-8.2); eGFR 79 ML/MIN
--- NOTE | 2019-01-25 06:15 | NUR ---
Problems reprioritized. Patient report given, questions answered & plan of care reviewed with Anuj Nieves RN.
--- NOTE | 2019-01-25 06:57 | NUR ---
Patient in room [facility] 358. I have received report from PAMELA Blanton and had the opportunity to ask questions and assume patient care.
[2019-01-25] MEDS: enoxaparin 40mg/0.4ml syringe SUBCUT SCH (07:39)
[2019-01-25] MEDS: pantoprazole 40mg Tablet.DR PO SCH (07:39)
[2019-01-25] MEDS: aspirin 81mg tablet.DR PO SCH (07:39)
[2019-01-25] MEDS: vitamin D (cholecalciferol) 1,000 unit tablet PO SCH (07:39)
[2019-01-25] MEDS: lactobacillus rhamnosus 10,000 MMU CELLS/CAPSULE PO SCH ×2 (07:39→21:20)
[2019-01-25 08:00] VITALS: BP_SYST 108; BP_SYST 84; BP_DIAS 48; BP_DIAS 61
[2019-01-25] MEDS: K and/or MAG REPLACEMENT MC SCH ×2 (08:00)
[2019-01-25] MEDS: MVI, adult No.4 with vit. K 10 ML in dextrose 5% water 500ml 490 ML IV SCH ×2 (09:34)
[2019-01-25] MEDS: fluconazole-Diflucan 200mg/NS 100 ML IV SCH (09:34)
--- NOTE | 2019-01-25 10:00 | NUR ---
Patients TPN increased to goal rate of 115ml/hr.
[2019-01-25 11:00] VITALS: BP 136/99
--- NOTE | 2019-01-25 12:26 | NUR ---
PRESSURE ULCER EDUCATION: DEFINITION: A pressure ulcer is an area of skin that breaks down when you stay in one position too long. The constant pressure against the skin reduces the blood flow to that area and the affected tissue dies. CAUSES: "Being bedridden or in a wheelchair "Fragile skin "Having a chronic condition, such as diabetes or vascular disease "Inability to move certain parts of your body without assistance "Older age "Incontinence of urine or stool SYMPTOMS: "A reddened area that DOES NOT turn white when pressed on - this can be the beginning of a pressure ulcer "A blister, deep sore or a crater - these can be advanced pressure ulcers FIRST AID: "Relieve the pressure on this area "Keep the area clean and dry "Call your primary doctor if you see any of the above symptoms "DO NOT massage the area "DO NOT use a donut shaped or ring shaped pillow- these actually interfere with the blood flow and cause complications PREVENTION: "Check for pressure ulcers everyday "Change position at least every two hours to relieve pressure "Use items that help relieve pressure- pillows, sheepskin, foam padding, and powders. "Keep skin clean and dry "Eat healthy well balanced meals "Exercise daily IF YOU SEE ANY OF THESE SYMPTOMS WHILE IN THE HOSPITAL - TELL YOUR NURSE IMMEDIATELY. IF YOU SEE ANY OF THESE SYMPTOMS WHILE AT HOME OR HAVE ANY QUESTIONS OR CONCERNS ABOUT PRESSURE ULCERS - CALL YOUR PRIMARY DOCTOR IMMEDIATELY. Addendum: 01/25/19 at 1226 by Isidoro Dougherty RN Amended: Links added.
[2019-01-25] MEDS: morphine 2 MG/ML inj. syringe IV PRN ×2 (13:34→23:34)
--- NOTE | 2019-01-25 14:24 | NUR ---
Dr. Black aware that patient's midline abd incision at the mid-distal portion is unapproximated and appears to be dehisced. X2 hot wound spring production supervisor's in at bedside changing dressing to wound when Dr. Black came to assess patient.
[2019-01-25] MEDS ORDERED: normal saline 1000ml 1,000 ML IV ONE (14:45)
[2019-01-25] MEDS: Trace element-5 inj. 1 ML in AA 5%/cal/electrolyte-TPN/D15W 2,000 ML IV SCH (17:50)
[2019-01-25 18:00] VITALS: BP 90/54
--- NOTE | 2019-01-25 18:54 | NUR ---
Patient in room [facility] 358. I have received report from PAMELA Nieves and PAMELA Glass and had the opportunity to ask questions and assume patient care.
--- NOTE | 2019-01-25 18:56 | NUR ---
Problems reprioritized. Patient report given, questions answered & plan of care reviewed with PAMELA Blanton.
[2019-01-25] MEDS: atorvastatin 10mg tablet PO SCH (21:13)
[2019-01-25] MEDS: nystatin 15 GM powder TP SCH (21:14)
[2019-01-25] MEDS: fat emulsion IV bag 120 ML IV SCH (21:15)
[2019-01-26] VITALS: BP 153/58
[2019-01-26] MEDS: cefepime 1GM in D5W 50mL 50 ML IV SCH ×4 (00:30→23:33)
[2019-01-26] MEDS: metoclopramide 5 mg/ml inj IV PRN ×3 (00:31→22:08)
--- NOTE | 2019-01-26 01:51 | NUR ---
Dressing was saturated with brown drainage. When I changed the dressing the surgical incision had dehisced. Charge nurse was brought in to see. She stated that it was worse than what it was on day shift according to the report that she got.Surgeon was notified. He told me to re dress is with a non adhesive dressing. Surgeon will see in the AM.
--- NOTE | 2019-01-26 04:51 | NUR ---
Abdomen drainage is outlined with time on ABD dressing. Small amount of drainage since I changed dressing mid shift.
[2019-01-26 05:42] LABS: ALANINE AMINOTRANSFERASE 11 U/L (12-78); ALBUMIN 1.4 G/DL (3.4-5.0); ALBUMIN/GLOBULIN RATIO 0.4 (1.1-1.5); ALKALINE PHOSPHATASE 86 IU/L (46-116); ANION GAP 5 (8-16); ASPARTATE AMINO TRANSFERASE 27 U/L (10-37); BILIRUBIN,TOTAL 0.6 MG/DL (0.1-1.0); BLOOD UREA NITROGEN 16 MG/DL (7-18); BUN/CREATININE RATIO 18.8 (5.4-32.0); CALCIUM 8.1 MG/DL (8.5-10.1); CHLORIDE 106 MMOL/L (99-107); CREATININE 0.85 MG/DL (0.60-1.10); GLUCOSE 83 MG/DL (70-104); MAGNESIUM 1.8 MG/DL (1.5-2.4); PHOSPHORUS 1.7 MG/DL (2.3-4.5); POTASSIUM 3.9 MMOL/L (3.5-5.1); PREALBUMIN 6.3 MG/DL (19-36); SODIUM 137 MMOL/L (135-145); TOTAL CARBON DIOXIDE 25.9 MMOL/L (24-32); TOTAL PROTEIN 5.2 G/DL (6.4-8.2); TRIGLYCERIDES 71 MG/DL (20-135); eGFR 85 ML/MIN
--- NOTE | 2019-01-26 06:12 | NUR ---
Patient in room [facility] 358. I have received report from Harvinder SANTIAGO and had the opportunity to ask questions and assume patient care.
[2019-01-26 07:00] VITALS: BP 115/58
--- NOTE | 2019-01-26 07:05 | NUR ---
Problems reprioritized. Patient report given, questions answered & plan of care reviewed with PAMELA Downs.
[2019-01-26] MEDS: lactobacillus rhamnosus 10,000 MMU CELLS/CAPSULE PO SCH ×2 (07:54→22:23)
[2019-01-26] MEDS: pantoprazole 40mg Tablet.DR PO SCH (07:55)
[2019-01-26] MEDS: HYDROcodone/acetaminophen 5mg/325mg tablet PO PRN ×2 (07:55→14:51)
[2019-01-26] MEDS: vitamin D (cholecalciferol) 1,000 unit tablet PO SCH (07:57)
[2019-01-26 07:59] LABS: BASOPHILS % (AUTO) 0.4 % (0-1); EOSINOPHILS # (AUTO) 0.2 X10'3 (0-0.9); EOSINOPHILS % (AUTO) 1.3 % (0-6); HEMATOCRIT 35.3 % (42.0-52.0); HEMOGLOBIN 11.4 g/dl (14.0-17.9); LYMPHOCYTES # (AUTO) 1.5 X10'3 (1.1-4.8); LYMPHOCYTES % (AUTO) 12.6 % (21-51); MEAN CORPUSCULAR HEMOGLOBIN 24.6 PG (27.0-31.0); MEAN CORPUSCULAR HGB CONC 32.3 g/dL (33.0-36.5); MEAN CORPUSCULAR VOLUME 76.1 FL (78-98); MEAN PLATELET VOLUME 8.3 FL (7.4-10.4); MONOCYTES # (AUTO) 0.6 X10'3 (0-0.9); NEUTROPHILS # (AUTO) 9.5 X10'3 (1.8-7.7); NEUTROPHILS % (AUTO) 80.7 % (42-75); PLATELET COUNT 202 X10'3 (140-440); RED BLOOD COUNT 4.64 X10'6 (4.70-6.10); RED CELL DISTRIBUTION WIDTH 16.2 % (11.5-14.5); WHITE BLOOD COUNT 11.8 X10'3 (4.5-11.0)
[2019-01-26] MEDS: aspirin 81mg tablet.DR PO SCH (08:00)
[2019-01-26] MEDS: K and/or MAG REPLACEMENT MC SCH ×2 (08:00)
[2019-01-26] MEDS: enoxaparin 40mg/0.4ml syringe SUBCUT SCH (08:00)
[2019-01-26] MEDS: MVI, adult No.4 with vit. K 10 ML in dextrose 5% water 500ml 490 ML IV SCH ×2 (08:09)
[2019-01-26] MEDS: nystatin 15 GM powder TP SCH ×2 (08:18→20:00)
[2019-01-26] MEDS: fluconazole-Diflucan 200mg/NS 100 ML IV SCH (08:26)
[2019-01-26 11:00] VITALS: BP 127/90
[2019-01-26] MEDS: Trace element-5 inj. 1 ML in AA 5%/cal/electrolyte-TPN/D15W 2,000 ML IV SCH (11:27)
[2019-01-26] MEDS ORDERED: sodium phosphate in D5W IVPB 250 ML IV ONE (12:10)
[2019-01-26] MEDS ORDERED: [UNRECOGNIZED DRUG - OTHER] IV ONE ×2 (13:00)
[2019-01-26 18:00] VITALS: BP 132/48
--- NOTE | 2019-01-26 18:00 | NUR ---
Patient in room [facility] 358. I have received report from Yareli SANTIAGO and had the opportunity to ask questions and assume patient care. Addendum: 01/27/19 at 0324 by Jennifer Paulino RN Amended: Links added.
--- NOTE | 2019-01-26 18:45 | NUR ---
patient seen today by Dr Altamirano. wound viewed, patient is for possible surgery today to resuture dehissed wound per Dr Altamirano. All cares given dressing changed x2 with mod amount of drainage. [place] given x2. NG 200mls out. Consent signed by son for possible surgery. Report given to Jennifer SANTIAGO
[2019-01-26 18:49] VITALS: BP 115/58
[2019-01-26 18:53] VITALS: BP 146/65
[2019-01-26] MEDS: morphine 2 MG/ML inj. syringe IV PRN (22:20)
[2019-01-26] MEDS: atorvastatin 10mg tablet PO SCH (22:22)
[2019-01-26] MEDS: fat emulsion IV bag 120 ML IV SCH (22:42)
--- NOTE | 2019-01-26 23:30 | NUR ---
Returned pt's daughter call (Daya) needing to know pt's status previously at beginning of the shift. Daya wanted to know when the pt's surgery was scheduled; replied stating i did not have specific time for surgery at this time yet. Pt's daughter verbalized understanding. No further questions from pt's daughter at this time. Addendum: 01/27/19 at 0825 by Jennifer Paulino RN Amended: Links added.
[2019-01-27] VITALS (10 sets, daily range): BP systolic 121–146; BP diastolic 53–77
[2019-01-27] MEDS: metoclopramide 5 mg/ml inj IV PRN ×3 (04:31→18:35)
[2019-01-27] MEDS: morphine 2 MG/ML inj. syringe IV PRN ×3 (04:32→21:18)
--- NOTE | 2019-01-27 05:00 | NUR ---
Pt's pain management in place with morphine ivp q 4 prn as ordered. C/o pain x 2 medicated as ordered effective. ABd dressing CDI this shift. TPN & Lipids in place for nutrition management. Addendum: 01/27/19 at 0747 by Jennifer Paulino RN Amended: Links added.
[2019-01-27] MEDS: Trace element-5 inj. 1 ML in AA 5%/cal/electrolyte-TPN/D15W 2,000 ML IV SCH ×2 (05:06→22:04)
--- NOTE | 2019-01-27 06:30 | NUR ---
Patient in room [facility] 358. I have received report from PAMELA Rodriguez and had the opportunity to ask questions and assume patient care.
[2019-01-27] MEDS ORDERED: bacitracin 15gm ointment TP ONE (07:19)
[2019-01-27] MEDS ORDERED: ceFAZolin 1000mg inj ONE (07:19)
[2019-01-27] MEDS: cefepime 1GM in D5W 50mL 50 ML IV SCH ×3 (07:23→23:24)
[2019-01-27] MEDS: K and/or MAG REPLACEMENT MC SCH ×2 (07:40)
[2019-01-27] MEDS: aspirin 81mg tablet.DR PO SCH (07:41)
[2019-01-27] MEDS: enoxaparin 40mg/0.4ml syringe SUBCUT SCH (07:41)
[2019-01-27] MEDS: lactobacillus rhamnosus 10,000 MMU CELLS/CAPSULE PO SCH ×2 (07:41→20:24)
[2019-01-27] MEDS: pantoprazole 40mg Tablet.DR PO SCH (07:41)
[2019-01-27] MEDS: vitamin D (cholecalciferol) 1,000 unit tablet PO SCH (07:42)
[2019-01-27] MEDS ORDERED: fentaNYL/PF 50MCG/1 ML 2ML syringe ONE (08:26)
[2019-01-27] MEDS ORDERED: propofol inj 20 ML IV ONE (08:26)
--- NOTE | 2019-01-27 09:15 | NUR ---
Received from OR via BED, accompanied by Anesthesiologist DR RYAN and report given by Anesthesiolgist. PATIENT A&OX4, DENIES PAIN, V/S WNL, NEUROVASCULAR CHECKS INTACT, LUE PICC, SCD ON, DRESSING TO ABDOMEN WITH ABD BINDER ON CDI, NG TUBE TO LWS TO LEFT NARES. TPN AND LIPIDS INFUSING. F/C DRAINIGN CLEAR YELLOW URINE
[2019-01-27] MEDS ORDERED: ringers solution, lacted 1,000 ML IV SCH (09:28)
[2019-01-27] MEDS ORDERED: ondansetron/PF 4mg/2ml inj IV PRN (09:30)
[2019-01-27] MEDS ORDERED: morphine 4 MG/ML inj SYRINge IV PRN ×2 (09:30)
[2019-01-27] MEDS ORDERED: meperidine/PF 25mg/ml syringe IV PRN ×3 (09:30)
[2019-01-27] MEDS ORDERED: proCHLORperazine 10 MG/2 ml inj IV PRN (09:30)
--- NOTE | 2019-01-27 10:00 | NUR ---
Report received from DEFECTIVE CIGARETTE SLITTER.
--- NOTE | 2019-01-27 10:05 | NUR ---
PATIENT A&OX4, DENIES PAIN, V/S WNL, NEUROVASCULAR CHECKS INTACT, LUE PICC, SCD ON, DRESSING TO ABDOMEN WITH ABD BINDER ON CDI, NG TUBE TO LWS TO LEFT NARES. TPN AND LIPIDS INFUSING. F/C DRAINING CLEAR YELLOW URINE. PATIENT TAKEN TO 358A WITH ALL BELONGINGS AND HOOKED UP TO MONITORS IN ROOM AND REPORT GIVEN TO FIELD CANE SCALER HELPER WHO HAS TAKEN OVER PATIENT CARE.
--- NOTE | 2019-01-27 10:10 | NUR ---
Pt returned to room 358A from OR
[2019-01-27] MEDS: fluconazole-Diflucan 200mg/NS 100 ML IV SCH (10:54)
[2019-01-27] MEDS ORDERED: bisacodyl 10mg suppository rectal RC PRN (11:00)
[2019-01-27] MEDS: nystatin 15 GM powder TP SCH ×2 (11:08→20:24)
[2019-01-27] MEDS: MVI, adult No.4 with vit. K 10 ML in dextrose 5% water 500ml 490 ML IV SCH ×2 (11:08)
--- NOTE | 2019-01-27 16:42 | NUR ---
reassessment: Pt tolerating TPN at goal. PALB 6.3. Did have small BM following dulcolax today per RN; receiving reglan. Still no flatus per latest MD note. Will monitor for TPN tolerance and diet advancement as GI function returns. Rec: 1. Continuous TPN using 07/13 Clinimix E with 115 mL/hr goal rate to provide 138 g AA and 414 g Dextrose with dext load 2.5 mg/kg/min 2. Separate 120 mL 20% intralipids to run at 10 mL/hr for 12 hours daily to provide 24 g lipids 3. In total, TPN with lipids to provide 2880 mL total volume/day, 1648 non-protein kcals, and 2200 total kcal 4. Prealbumin and TG q / 5. Daily weights 6. Opioid antagonist and promotility post-op per MD approval 7. Advance diet to regular as medically indicated 8. Once PO; MVI for healing needs Addendum: 01/27/19 at [address] Amended: Links added.
--- NOTE | 2019-01-27 18:15 | NUR ---
Problems reprioritized. Patient report given, questions answered & plan of care reviewed with PAMELA Gama.
--- NOTE | 2019-01-27 18:25 | NUR ---
Received report from Kinjal SANTIAGO pt is lying in bed, son at bedside, on RA, in no apparent distress
[2019-01-27] MEDS: atorvastatin 10mg tablet PO SCH (20:24)
[2019-01-27] MEDS: fat emulsion IV bag 120 ML IV SCH (22:05)
[2019-01-27] MEDS: HYDROcodone/acetaminophen 5mg/325mg tablet PO PRN (23:24)
[2019-01-28] VITALS: BP 114/49
[2019-01-28 05:18] LABS: BASOPHILS # (AUTO) 0.1 X10'3 (0-0.2); BASOPHILS % (AUTO) 0.8 % (0-1); EOSINOPHILS # (AUTO) 0.3 X10'3 (0-0.9); EOSINOPHILS % (AUTO) 2.2 % (0-6); HEMATOCRIT 34.2 % (42.0-52.0); LYMPHOCYTES # (AUTO) 1.7 X10'3 (1.1-4.8); LYMPHOCYTES % (AUTO) 15.5 % (21-51); MEAN CORPUSCULAR HEMOGLOBIN 24.5 PG (27.0-31.0); MEAN CORPUSCULAR HGB CONC 32.1 g/dL (33.0-36.5); MEAN CORPUSCULAR VOLUME 76.4 FL (78-98); MEAN PLATELET VOLUME 8.9 FL (7.4-10.4); MONOCYTES # (AUTO) 0.6 X10'3 (0-0.9); MONOCYTES % (AUTO) 5.6 % (2-12); NEUTROPHILS # (AUTO) 8.6 X10'3 (1.8-7.7); NEUTROPHILS % (AUTO) 75.9 % (42-75); PLATELET COUNT 218 X10'3 (140-440); RED BLOOD COUNT 4.47 X10'6 (4.70-6.10); RED CELL DISTRIBUTION WIDTH 15.8 % (11.5-14.5); WHITE BLOOD COUNT 11.3 X10'3 (4.5-11.0)
[2019-01-28 05:29] LABS: ALANINE AMINOTRANSFERASE 61 U/L (12-78); ALBUMIN 1.4 G/DL (3.4-5.0); ALBUMIN/GLOBULIN RATIO 0.4 (1.1-1.5); ALKALINE PHOSPHATASE 133 IU/L (46-116); ANION GAP 4 (8-16); ASPARTATE AMINO TRANSFERASE 144 U/L (10-37); BILIRUBIN,TOTAL 0.8 MG/DL (0.1-1.0); BLOOD UREA NITROGEN 24 MG/DL (7-18); BUN/CREATININE RATIO 25.5 (5.4-32.0); CHLORIDE 104 MMOL/L (99-107); CREATININE 0.94 MG/DL (0.60-1.10); GLUCOSE 91 MG/DL (70-104); MAGNESIUM 2.2 MG/DL (1.5-2.4); PHOSPHORUS 2.3 MG/DL (2.3-4.5); POTASSIUM 4.2 MMOL/L (3.5-5.1); SODIUM 136 MMOL/L (135-145); TOTAL CARBON DIOXIDE 28.3 MMOL/L (24-32); TOTAL PROTEIN 5.4 G/DL (6.4-8.2); eGFR 76 ML/MIN
--- NOTE | 2019-01-28 06:12 | NUR ---
Gave report to Rachel SANTIAGO pt is resting on RA, NG tube running at low cont, call lights within reach
[2019-01-28] MEDS: K and/or MAG REPLACEMENT MC SCH ×2 (06:37)
--- NOTE | 2019-01-28 06:45 | NUR ---
Patient in room [facility] 358. I have received report from julius connor and had the opportunity to ask questions and assume patient care.
[2019-01-28 07:00] VITALS: BP 155/66
[2019-01-28] MEDS: vitamin D (cholecalciferol) 1,000 unit tablet PO SCH (07:29)
[2019-01-28] MEDS: aspirin 81mg tablet.DR PO SCH (07:30)
[2019-01-28] MEDS: pantoprazole 40mg Tablet.DR PO SCH (07:30)
[2019-01-28] MEDS: lactobacillus rhamnosus 10,000 MMU CELLS/CAPSULE PO SCH ×2 (07:30→20:12)
[2019-01-28] MEDS: cefepime 1GM in D5W 50mL 50 ML IV SCH ×3 (07:37→23:47)
[2019-01-28] MEDS: metoclopramide 5 mg/ml inj IV PRN ×2 (07:37→14:28)
[2019-01-28] MEDS: enoxaparin 40mg/0.4ml syringe SUBCUT SCH (07:37)
[2019-01-28] MEDS: nystatin 15 GM powder TP SCH ×2 (08:09→20:12)
[2019-01-28] MEDS: fluconazole-Diflucan 200mg/NS 100 ML IV SCH (08:11)
[2019-01-28 11:00] VITALS: BP 132/72
[2019-01-28] MEDS: furosemide 20 MG/2 ML vial IV SCH (11:54)
[2019-01-28] MEDS: Trace element-5 inj. 1 ML in AA 5%/cal/electrolyte-TPN/D15W 2,000 ML IV SCH (14:29)
[2019-01-28] MEDS: MVI, adult No.4 with vit. K 10 ML in dextrose 5% water 500ml 490 ML IV SCH ×2 (14:36)
--- NOTE | 2019-01-28 18:17 | NUR ---
Problems reprioritized. Patient report given, questions answered & plan of care reviewed with MARICRUZ SANTIAGO.
--- NOTE | 2019-01-28 18:20 | NUR ---
Received report from Rachel SANTIAGO pt is requesting help eating his broth, NG tube clamped for the time being.
[2019-01-28 19:00] VITALS: BP 126/52
[2019-01-28] MEDS: fat emulsion IV bag 120 ML IV SCH (20:12)
[2019-01-28] MEDS: atorvastatin 10mg tablet PO SCH (20:12)
[2019-01-29] VITALS: BP 137/62
[2019-01-29] MEDS: metoclopramide 5 mg/ml inj IV PRN ×2 (00:24→14:29)
[2019-01-29 04:39] LABS: BASOPHILS # (AUTO) 0.1 X10'3 (0-0.2); BASOPHILS % (AUTO) 0.6 % (0-1); EOSINOPHILS # (AUTO) 0.2 X10'3 (0-0.9); HEMATOCRIT 31.8 % (42.0-52.0); HEMOGLOBIN 10.3 g/dl (14.0-17.9); LYMPHOCYTES # (AUTO) 1.4 X10'3 (1.1-4.8); LYMPHOCYTES % (AUTO) 15.2 % (21-51); MEAN CORPUSCULAR HEMOGLOBIN 24.7 PG (27.0-31.0); MEAN CORPUSCULAR HGB CONC 32.5 g/dL (33.0-36.5); MEAN PLATELET VOLUME 8.5 FL (7.4-10.4); MONOCYTES # (AUTO) 0.6 X10'3 (0-0.9); MONOCYTES % (AUTO) 6.4 % (2-12); NEUTROPHILS # (AUTO) 6.8 X10'3 (1.8-7.7); NEUTROPHILS % (AUTO) 75.8 % (42-75); PLATELET COUNT 215 X10'3 (140-440); RED BLOOD COUNT 4.18 X10'6 (4.70-6.10); RED CELL DISTRIBUTION WIDTH 15.9 % (11.5-14.5)
[2019-01-29 04:48] LABS: ALANINE AMINOTRANSFERASE 235 U/L (12-78); ALBUMIN 1.3 G/DL (3.4-5.0); ALBUMIN/GLOBULIN RATIO 0.3 (1.1-1.5); ALKALINE PHOSPHATASE 195 IU/L (46-116); ANION GAP 3 (8-16); ASPARTATE AMINO TRANSFERASE 604 U/L (10-37); BILIRUBIN,TOTAL 0.7 MG/DL (0.1-1.0); BLOOD UREA NITROGEN 25 MG/DL (7-18); BUN/CREATININE RATIO 26.6 (5.4-32.0); CALCIUM 7.7 MG/DL (8.5-10.1); CHLORIDE 106 MMOL/L (99-107); CREATININE 0.94 MG/DL (0.60-1.10); GLUCOSE 100 MG/DL (70-104); MAGNESIUM 2.1 MG/DL (1.5-2.4); PHOSPHORUS 2.1 MG/DL (2.3-4.5); POTASSIUM 4.2 MMOL/L (3.5-5.1); SODIUM 138 MMOL/L (135-145); TOTAL CARBON DIOXIDE 29.2 MMOL/L (24-32); TOTAL PROTEIN 5.1 G/DL (6.4-8.2); eGFR 76 ML/MIN
[2019-01-29 06:00] VITALS: BP 154/51
--- NOTE | 2019-01-29 06:43 | NUR ---
Gave report to Lyndsey SANTIAGO pt is awake and alert on RA watching tv in no apparent distress, call light and items of freq use within reach.
[2019-01-29] MEDS: K and/or MAG REPLACEMENT MC SCH ×2 (06:56)
[2019-01-29] MEDS: lactobacillus rhamnosus 10,000 MMU CELLS/CAPSULE PO SCH ×2 (07:07→20:09)
[2019-01-29] MEDS: vitamin D (cholecalciferol) 1,000 unit tablet PO SCH (07:07)
[2019-01-29] MEDS: pantoprazole 40mg Tablet.DR PO SCH (07:07)
[2019-01-29] MEDS: nystatin 15 GM powder TP SCH ×2 (07:07→20:13)
[2019-01-29] MEDS: aspirin 81mg tablet.DR PO SCH (07:07)
[2019-01-29] MEDS: furosemide 20 MG/2 ML vial IV SCH (07:08)
[2019-01-29] MEDS: enoxaparin 40mg/0.4ml syringe SUBCUT SCH (07:08)
[2019-01-29] MEDS: cefepime 1GM in D5W 50mL 50 ML IV SCH ×2 (07:08→15:15)
[2019-01-29] MEDS: fluconazole-Diflucan 200mg/NS 100 ML IV SCH (07:08)
[2019-01-29] MEDS: MVI, adult No.4 with vit. K 10 ML in dextrose 5% water 500ml 490 ML IV SCH ×2 (07:08)
[2019-01-29] MEDS: Trace element-5 inj. 1 ML in AA 5%/cal/electrolyte-TPN/D15W 2,000 ML IV SCH (08:00)
[2019-01-29] MEDS ORDERED: Trace element-5 inj. 0.5 ML in AA 5%/cal/electrolyte-TPN/D15W 1,000 ML IV SCH (08:01)
[2019-01-29] MEDS: baclofen 10mg tablet PO SCH ×2 (09:18→20:09)
--- NOTE | 2019-01-29 10:48 | NUR ---
Patient in room [facility] 358. I have received report from Tamara and had the opportunity to ask questions and assume patient care.
[2019-01-29 11:00] VITALS: BP 135/88
[2019-01-29] MEDS ORDERED: sodium phosphate inj. 15 MMOL in dextrose 5%-water 250 ML IV ONE (13:45)
[2019-01-29] MEDS: HYDROcodone/acetaminophen 5mg/325mg tablet PO PRN (14:28)
[2019-01-29] MEDS: Trace element-5 inj. 0.5 ML in AA 5%/cal/electrolyte-TPN/D15W 1,000 ML IV SCH (15:15)
--- NOTE | 2019-01-29 17:49 | NUR ---
Abdominal binder would not stay on pt. Spoke with Dr Altamirano who ordered Cameron straps. We do not have these on the floor, so used duoderms and safety pins with elastic bands. Diet advanced to mechanical soft. Pt has been medicated with norco for pain with appropriate results. Repositioned every 2 hours.
[2019-01-29 18:00] VITALS: BP 129/53
--- NOTE | 2019-01-29 18:06 | NUR ---
Problems reprioritized. Patient report given, questions answered & plan of care reviewed with Nae.
--- NOTE | 2019-01-29 18:33 | NUR ---
Problems reprioritized. Patient report given, questions answered & plan of care reviewed with coreen.
--- NOTE | 2019-01-29 18:52 | NUR ---
Patient in room [facility] 358. I have received report from PAMELA Solorio and had the opportunity to ask questions and assume patient care.
[2019-01-29] MEDS: atorvastatin 10mg tablet PO SCH (20:09)
[2019-01-29] MEDS: fat emulsion IV bag 120 ML IV SCH (20:12)
[2019-01-30 00:09] VITALS: BP 134/50
[2019-01-30] MEDS: cefepime 1GM in D5W 50mL 50 ML IV SCH ×3 (00:20→16:09)
[2019-01-30] MEDS: Trace element-5 inj. 0.5 ML in AA 5%/cal/electrolyte-TPN/D15W 1,000 ML IV SCH ×2 (00:23→08:35)
[2019-01-30] MEDS: HYDROcodone/acetaminophen 5mg/325mg tablet PO PRN ×2 (00:36→05:54)
[2019-01-30 05:51] LABS: BASOPHILS # (AUTO) 0.1 X10'3 (0-0.2); BASOPHILS % (AUTO) 0.8 % (0-1); EOSINOPHILS # (AUTO) 0.3 X10'3 (0-0.9); EOSINOPHILS % (AUTO) 3.3 % (0-6); HEMATOCRIT 29.7 % (42.0-52.0); HEMOGLOBIN 9.8 g/dl (14.0-17.9); LYMPHOCYTES # (AUTO) 1.5 X10'3 (1.1-4.8); LYMPHOCYTES % (AUTO) 17.2 % (21-51); MEAN CORPUSCULAR HEMOGLOBIN 24.8 PG (27.0-31.0); MEAN CORPUSCULAR HGB CONC 32.9 g/dL (33.0-36.5); MEAN CORPUSCULAR VOLUME 75.2 FL (78-98); MEAN PLATELET VOLUME 9.1 FL (7.4-10.4); MONOCYTES # (AUTO) 0.6 X10'3 (0-0.9); MONOCYTES % (AUTO) 6.8 % (2-12); NEUTROPHILS # (AUTO) 6.4 X10'3 (1.8-7.7); NEUTROPHILS % (AUTO) 71.9 % (42-75); PLATELET COUNT 219 X10'3 (140-440); RED BLOOD COUNT 3.94 X10'6 (4.70-6.10); RED CELL DISTRIBUTION WIDTH 15.5 % (11.5-14.5); WHITE BLOOD COUNT 8.8 X10'3 (4.5-11.0)
[2019-01-30 06:26] LABS: ALANINE AMINOTRANSFERASE 425 U/L (12-78); ALBUMIN 1.3 G/DL (3.4-5.0); ALBUMIN/GLOBULIN RATIO 0.3 (1.1-1.5); ALKALINE PHOSPHATASE 245 IU/L (46-116); ANION GAP 5 (8-16); ASPARTATE AMINO TRANSFERASE 994 U/L (10-37); BILIRUBIN,TOTAL 0.5 MG/DL (0.1-1.0); BLOOD UREA NITROGEN 28 MG/DL (7-18); BUN/CREATININE RATIO 31.1 (5.4-32.0); CALCIUM 7.6 MG/DL (8.5-10.1); CHLORIDE 104 MMOL/L (99-107); GLUCOSE 78 MG/DL (70-104); MAGNESIUM 2.1 MG/DL (1.5-2.4); PHOSPHORUS 2.5 MG/DL (2.3-4.5); POTASSIUM 4.3 MMOL/L (3.5-5.1); SODIUM 138 MMOL/L (135-145); TOTAL CARBON DIOXIDE 29.2 MMOL/L (24-32); TOTAL PROTEIN 5.2 G/DL (6.4-8.2); TRIGLYCERIDES 63 MG/DL (20-135); eGFR 79 ML/MIN
--- NOTE | 2019-01-30 06:39 | NUR ---
Problems reprioritized. Patient report given, questions answered & plan of care reviewed with PAMELA Oconnell.
--- NOTE | 2019-01-30 06:39 | NUR ---
Patient in room [facility] 358. I have received report from Harvinder SANTIAGO and had the opportunity to ask questions and assume patient care.
[2019-01-30 07:00] VITALS: BP 109/41
[2019-01-30] MEDS: K and/or MAG REPLACEMENT MC SCH (08:00)
[2019-01-30] MEDS: vitamin D (cholecalciferol) 1,000 unit tablet PO SCH (08:36)
[2019-01-30] MEDS: aspirin 81mg tablet.DR PO SCH (08:36)
[2019-01-30] MEDS: pantoprazole 40mg Tablet.DR PO SCH (08:36)
[2019-01-30] MEDS: baclofen 10mg tablet PO SCH ×2 (08:36→21:18)
[2019-01-30] MEDS: lactobacillus rhamnosus 10,000 MMU CELLS/CAPSULE PO SCH ×2 (08:36→21:17)
[2019-01-30] MEDS: furosemide 20 MG/2 ML vial IV SCH (08:36)
[2019-01-30] MEDS: enoxaparin 40mg/0.4ml syringe SUBCUT SCH (08:37)
[2019-01-30] MEDS: nystatin 15 GM powder TP SCH ×2 (08:37→21:20)
[2019-01-30] MEDS: MVI, adult No.4 with vit. K 10 ML in dextrose 5% water 500ml 490 ML IV SCH ×2 (08:54)
[2019-01-30] MEDS ORDERED: Trace element-5 inj. 0.5 ML in AA 5%/cal/electrolyte-TPN/D15W 1,000 ML IV SCH (09:30)
--- NOTE | 2019-01-30 09:31 | NUR ---
Dr. Mehta instructed me to d/c TPN and other fluids running due to concern of fluid overload. Pharmacist Leydi notified about this who advised me not to abruptly d/c the TPN but must be wean off then d/c if blood sugar in 6 hours is within normal Addendum: 01/30/19 at 0909 by Anish Dozier RN TPN rate reduced to 50% of current flow rate
[2019-01-30] MEDS: metoclopramide 5 mg/ml inj IV PRN ×2 (10:41→17:39)
[2019-01-30 11:00] VITALS: BP 139/61
--- NOTE | 2019-01-30 12:33 | NUR ---
Patient admitted that she threw up at an earlier time, he stated that he threw up after he had argument with the physical therapist this morning Addendum: 01/30/19 at 1235 by Anish Dozier RN Offered Gil, patient denies being nauseated at this time. Instructed patient to eat small bites at a time and to let me know if he is nauseated again
--- NOTE | 2019-01-30 14:47 | NUR ---
reassessment: Pt weaning TPN at this time having BM's and advanced to mechanical soft diet per MD; PO 100% clear liquids prior to advancement yesterday. PALB up to 9.0 from prior 6.3. Liver labs elevated; transaminitis caused from Diflucan which is on hold per MD note. Wt does fluctuate negative fluid balance on lasix but also w/ 3+ pitting BLE edema present. Will continue to monitor for PO diet tolerance and additional protein needs. Rec: 1. Continue mechanical soft diet per MD 2. Monitor for ONS needs 3. Routine bowel care post-op 4. Weekly weights 5. MVI for healing needs Addendum: 01/30/19 at [address] Amended: Links added.
--- NOTE | 2019-01-30 18:58 | NUR ---
Problems reprioritized. Patient report given, questions answered & plan of care reviewed with Linda SANTIAGO and Otilia SANTIAGO.
--- NOTE | 2019-01-30 19:08 | NUR ---
Patient in room [facility] 358. I have received report from Anish SANTIAGO and had the opportunity to ask questions and assume patient care.
--- NOTE | 2019-01-30 19:17 | NUR ---
Patient in room [facility] 358. I have received report from Doretha SANTIAGO and had the opportunity to ask questions and assume patient care.
[2019-01-30 20:00] VITALS: BP 113/69
[2019-01-30] MEDS: ondansetron/PF 4mg/2ml inj IV PRN (21:17)
[2019-01-30] MEDS: atorvastatin 10mg tablet PO SCH (21:19)
[2019-01-31 00:54] VITALS: BP 123/55
[2019-01-31] MEDS: cefepime 1GM in D5W 50mL 50 ML IV SCH ×3 (01:10→16:00)
[2019-01-31 05:46] LABS: BASOPHILS # (AUTO) 0.1 X10'3 (0-0.2); BASOPHILS % (AUTO) 0.6 % (0-1); EOSINOPHILS # (AUTO) 0.2 X10'3 (0-0.9); EOSINOPHILS % (AUTO) 2.2 % (0-6); HEMATOCRIT 31.3 % (42.0-52.0); HEMOGLOBIN 10.3 g/dl (14.0-17.9); LYMPHOCYTES # (AUTO) 1.9 X10'3 (1.1-4.8); LYMPHOCYTES % (AUTO) 17.5 % (21-51); MEAN CORPUSCULAR HEMOGLOBIN 24.6 PG (27.0-31.0); MEAN CORPUSCULAR HGB CONC 32.8 g/dL (33.0-36.5); MEAN PLATELET VOLUME 9.1 FL (7.4-10.4); MONOCYTES # (AUTO) 0.6 X10'3 (0-0.9); MONOCYTES % (AUTO) 5.3 % (2-12); NEUTROPHILS # (AUTO) 8.2 X10'3 (1.8-7.7); NEUTROPHILS % (AUTO) 74.4 % (42-75); PLATELET COUNT 258 X10'3 (140-440); RED BLOOD COUNT 4.18 X10'6 (4.70-6.10); RED CELL DISTRIBUTION WIDTH 15.9 % (11.5-14.5)
--- NOTE | 2019-01-31 06:04 | NUR ---
Problems reprioritized. Patient report given, questions answered & plan of care reviewed with Anish SANTIAGO.
--- NOTE | 2019-01-31 06:05 | NUR ---
Problems reprioritized. Patient report given, questions answered & plan of care reviewed with Anish SANTIAGO.
--- NOTE | 2019-01-31 06:33 | NUR ---
Patient in room [facility] 358. I have received report from Linda SANTIAGO and had the opportunity to ask questions and assume patient care.
[2019-01-31 07:00] VITALS: BP 112/53
[2019-01-31] MEDS: furosemide 20 MG/2 ML vial IV SCH (07:25)
[2019-01-31] MEDS: baclofen 10mg tablet PO SCH (07:25)
[2019-01-31] MEDS: pantoprazole 40mg Tablet.DR PO SCH (07:25)
[2019-01-31] MEDS: enoxaparin 40mg/0.4ml syringe SUBCUT SCH (07:25)
[2019-01-31] MEDS: aspirin 81mg tablet.DR PO SCH (07:26)
[2019-01-31] MEDS: lactobacillus rhamnosus 10,000 MMU CELLS/CAPSULE PO SCH (07:26)
[2019-01-31] MEDS: vitamin D (cholecalciferol) 1,000 unit tablet PO SCH (07:35)
[2019-01-31] MEDS: nystatin 15 GM powder TP SCH (07:35)
[2019-01-31] MEDS: K and/or MAG REPLACEMENT MC SCH (08:00)
[2019-01-31 11:00] VITALS: BP 111/48
--- NOTE | 2019-01-31 13:52 | NUR ---
Report given over the phone to BRIANA Briggs at [facility]. Addendum: 01/31/19 at 1353 by Anish Dozier RN Anticipated fruit or nut picker time is 15:30 today as per CM report
--- NOTE | 2019-01-31 17:06 | NUR ---
Awaiting for the transport service to miner pick patient to [facility]. The expected miner pick time had changed to 1715 as I was told by Samir per CM
--- NOTE | 2019-01-31 17:29 | NUR ---
PICC line on the left upper arm discontinued [facility]. Patient tolerated the procedure well, tip intact. Pressure dressing applied on the puncture site.
--- NOTE | 2019-01-31 17:50 | NUR ---
[employer] service arrived, hands off report given to the personnel. Transfer paperworks given
== END 2019-01-31 17:57 | DRG 907 ==
LOC: ER 10:17 → ED HOLD 11:36 → SUR 3N 12:42
PROVIDERS: ADMIT Hospitalist; ATTEND Internal Medicine
PROC: 0WPF0JZ Removal of Synthetic Substitute from Abdominal Wall, Open Approach (ICD-10-PCS; principal; 2019-01-20)
PROC: 0DN80ZZ Release Small Intestine, Open Approach (ICD-10-PCS; 2019-01-20)
PROC: 0DB80ZZ Excision of Small Intestine, Open Approach (ICD-10-PCS; 2019-01-20)
PROC: 0D9670Z Drainage of Stomach with Drainage Device, Via Natural or Artificial Opening (ICD-10-PCS; 2019-01-21)
PROC: 02HV33Z Insertion of Infusion Device into Superior Vena Cava, Percutaneous Approach (ICD-10-PCS; 2019-01-24)
PROC: 0WQFXZZ Repair Abdominal Wall, External Approach (ICD-10-PCS; 2019-01-27)
DX: T85.79XA Infection and inflammatory reaction due to other internal prosthetic devices, implants and grafts, initial encounter (principal); E43 Unspecified severe protein-calorie malnutrition; K63.2 Fistula of intestine; N17.9 Acute kidney failure, unspecified; K91.89 Other postprocedural complications and disorders of digestive system; K56.7 Ileus, unspecified; T81.31XA Disruption of external operation (surgical) wound, not elsewhere classified, initial encounter; T81.41XA Infection following a procedure, superficial incisional surgical site, initial encounter; E78.5 Hyperlipidemia, unspecified; B96.20 Unspecified Escherichia coli [E. coli] as the cause of diseases classified elsewhere; I25.10 Atherosclerotic heart disease of native coronary artery without angina pectoris; E66.9 Obesity, unspecified; I48.91 Unspecified atrial fibrillation; I10 Essential (primary) hypertension; K66.0 Peritoneal adhesions (postprocedural) (postinfection); Y83.8 Other surgical procedures as the cause of abnormal reaction of the patient, or of later complication, without mention of misadventure at the time of the procedure; Z82.3 Family history of stroke; Z82.49 Family history of ischemic heart disease and other diseases of the circulatory system; Z83.3 Family history of diabetes mellitus; Z90.49 Acquired absence of other specified parts of digestive tract; Z98.890 Other specified postprocedural states; Z87.891 Personal history of nicotine dependence; Z68.30 Body mass index [BMI] 30.0-30.9, adult; Z88.0 Allergy status to penicillin; Z79.899 Other long term (current) drug therapy; I95.81 Postprocedural hypotension; Y92.89 Other specified places as the place of occurrence of the external cause
CPT/HCPCS: 36415; 36569; 71045; 76937; 80048; 80053; 82948; 83735; 83880; 84100; 84134; 84478; 85025; 85610; 85730; 86870; 86880; 86885; 86900; 86901; 86905; 87070; 87075; 87077; 87081; 87102; 87107; 87186; 88300; 88307; 93005; 93306; 97110; 97112; 97116; 97161; 97164; 97530; 97535; 99285; A4618; A6253; A6258; A6449; A7000; C1758; C9399; G0378; J0131; J0690; J0692; J1450; J1650; J1940; J2001; J2175; J2250; J2270; J2405; J2704; J2710; J2765; J3010; J3475; J3480; J3490; J7030; J7060; J7120; Q2037

== ENCOUNTER 2019-02-01 22:24 | Emergency (ER) | payer MEDICARE ==
[~2019-02-01] VITALS: Ht 177.8 cm; Wt 100.0 kg
[~2019-02-01 22:24] MED LIST changes: -AMIO200T61 PO; +ASPI81TA52 PO; +CHOL100046 PO; -FURO-150 PO; -METO-395 PO; +METO25TA6 PO; -OMEP-297 PO; +OMEP20CA11 PO; +PRAV40TA3 PO; -SIMV20TA PO; -WARF6TAB49 PO
[2019-02-01 23:10] LABS: BASOPHILS # (AUTO) 0.1 X10'3 (0-0.2); BASOPHILS % (AUTO) 1.1 % (0-1); EOSINOPHILS # (AUTO) 0.1 X10'3 (0-0.9); EOSINOPHILS % (AUTO) 0.4 % (0-6); HEMATOCRIT 31.9 % (42.0-52.0); HEMOGLOBIN 10.4 g/dl (14.0-17.9); LYMPHOCYTES # (AUTO) 1.7 X10'3 (1.1-4.8); LYMPHOCYTES % (AUTO) 14.1 % (21-51); MEAN CORPUSCULAR HEMOGLOBIN 24.3 PG (27.0-31.0); MEAN CORPUSCULAR HGB CONC 32.7 g/dL (33.0-36.5); MEAN CORPUSCULAR VOLUME 74.5 FL (78-98); MEAN PLATELET VOLUME 8.8 FL (7.4-10.4); MONOCYTES # (AUTO) 0.5 X10'3 (0-0.9); MONOCYTES % (AUTO) 4.6 % (2-12); NEUTROPHILS # (AUTO) 9.5 X10'3 (1.8-7.7); NEUTROPHILS % (AUTO) 79.8 % (42-75); PLATELET COUNT 346 X10'3 (140-440); RED BLOOD COUNT 4.28 X10'6 (4.70-6.10); RED CELL DISTRIBUTION WIDTH 15.7 % (11.5-14.5)
[2019-02-01 23:14] LABS: CLARITY,URINE CLEAR (Clear); COLOR,URINE AMBER (Yellow); GLUCOSE, URINE NEGATIVE (Neg); KETONES,URINE TRACE mg/dl (Neg); LEUKOCYTE ESTERASE ,URINE NEGATIVE (Neg); NITRITES, URINE NEGATIVE (Neg); OCCULT BLOOD,URINE LARGE (Neg); PH,URINE 6.5 (4.8-8.0); PROTEIN,URINE 100 mg/dl (Neg)
[2019-02-01 23:15] LABS: UA COLLECTION TYPE FOLEY CATH
[2019-02-01 23:22] LABS: PARTIAL THROMBOPLASTIN TIME 32 SECONDS (22-32)
[2019-02-01 23:23] LABS: BACTERIA,URINE NONE SEEN /HPF (Neg); HYALINE CASTS 0-3 /LPF (NEGATIVE); MUCUS STRANDS NONE SEEN /LPF (Neg); SQUAMOUS EPITHELIAL CELL,UR NONE SEEN /LPF (FEW); WBC,URINE NONE SEEN /HPF (0-4)
[2019-02-01 23:33] LABS: ALANINE AMINOTRANSFERASE 154 U/L (12-78); ALBUMIN 1.6 G/DL (3.4-5.0); ALBUMIN/GLOBULIN RATIO 0.3 (1.1-1.5); ALKALINE PHOSPHATASE 251 IU/L (46-116); ANION GAP 8 (8-16); ASPARTATE AMINO TRANSFERASE 246 U/L (10-37); BILIRUBIN,TOTAL 0.6 MG/DL (0.1-1.0); BLOOD UREA NITROGEN 24 MG/DL (7-18); BUN/CREATININE RATIO 19.5 (5.4-32.0); CALCIUM 7.9 MG/DL (8.5-10.1); CHLORIDE 101 MMOL/L (99-107); CREATININE 1.23 MG/DL (0.60-1.10); GLUCOSE 73 MG/DL (70-104); POTASSIUM 4.3 MMOL/L (3.5-5.1); SODIUM 137 MMOL/L (135-145); TOTAL CARBON DIOXIDE 27.6 MMOL/L (24-32); TOTAL PROTEIN 6.4 G/DL (6.4-8.2); eGFR 55 ML/MIN
--- NOTE | 2019-02-01 23:51 | NUR ---
PT RETURNED FROM CT WITH NO ADVERSE CHANGE IN CONDITION.
[2019-02-02] MEDS ORDERED: normal saline 1000ML IV soln IVB ONE ×2 (00:45)
--- NOTE | 2019-02-02 03:49 | NUR ---
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 Pending transpo.
--- NOTE | 2019-02-02 03:57 | NUR ---
[employer] to [facility] picker pt and [facility] for [facility]hab medicine. Family aware.
--- NOTE | 2019-02-02 04:21 | NUR ---
Patient resting in bed. He complains of pain to his feet so he is repositioned with pillows and appears more comfortable. Family updated on POC and we are waiting for [employer] to transport back to [facility].
[2019-02-02] MEDS ORDERED: HYDROcodone/acetaminophen 5mg/325mg tablet PO ONE (05:05)
[2019-02-02 05:16] VITALS: BP 118/64
== END 2019-02-02 05:18 | disposition home or self-care (01) ==
LOC: ER 22:25
DX: E86.0 Dehydration (principal); T42.8X5A Adverse effect of antiparkinsonism drugs and other central muscle-tone depressants, initial encounter; Z88.0 Allergy status to penicillin; Z88.8 Allergy status to other drugs, medicaments and biological substances; Z79.82 Long term (current) use of aspirin; Z79.899 Other long term (current) drug therapy; Y92.89 Other specified places as the place of occurrence of the external cause
CPT/HCPCS: 36415; 70450; 71045; 74176; 80053; 81001; 83605; 84145; 85025; 85610; 85730; 87040; 93005; 96360; 99284; J7030; J7040